=== PATIENT | male | born 1950 | race Caucasian/White ===

== ENCOUNTER 2016-11-10 11:29 | Day surgery (SDC) | payer BC, MEDICARE ==
[2016-11-10] MEDS ORDERED: fentaNYL* 50 MCG/ML 2 ML VIAL (100 MCG VIAL) IV SLOW PU ONE (12:36)
[2016-11-10] MEDS ORDERED: Ondansetron TAB* 4 MG PO ONE (12:36)
[2016-11-10] MEDS ORDERED: Ondansetron INJ* 2 MG/ML VIAL IV ONE (12:55)
[2016-11-10 13:09] LABS: Hematocrit 44 % (42-52); Hemoglobin 14.6 g/dl (14.0-18.0); Mean Corpuscular HGB Conc 33 g/dl (31-36); Mean Corpuscular Hemoglobin 31 pg (27-31); Mean Corpuscular Volume 94 fL (80-94); Mean Platelet Volume 9 um3 (7.4-10.4); Red Blood Count 4.69 10^6/ul (4.0-5.4); Red Cell Distribution Width 14 % (10.5-15); White Blood Count 9.3 10^3/ul (3.5-10.8)
[2016-11-10 13:26] LABS: ALT 112 U/L (7-52); AST 58 U/L (13-39); Albumin 3.9 g/dL (3.2-5.2); Alkaline Phosphatase 53 U/L (34-104); Anion Gap 8 mmol/L (2-11); BUN/Creatinine Ratio 12.1 (8-20); Blood Urea Nitrogen 11 mg/dL (6-24); C Reactive Protein 4.34 mg/L (< 5.00); CO2 Carbon Dioxide 26 mmol/L (22-32); Calcium 9.5 mg/dL (8.6-10.3); Chloride 101 mmol/L (101-111); EGFR African American 107.5 (>60); EGFR Non-African American 83.6 (>60); Globulin 3.6 g/dL (2-4); Glucose 134 mg/dL (70-100); Lipase < 10 U/L (11.0-82.0); Potassium 3.8 mmol/L (3.5-5.0); Sodium 135 mmol/L (133-145); Total Protein 7.5 g/dL (6.4-8.9)
[2016-11-10] MEDS ORDERED: Bupivacaine 0.5% W/EPI SDV* 10 ML VIAL INJ ONE (15:24)
[2016-11-10] MEDS ORDERED: Lidocaine 1% INJ* 10 MG/ML 30 ML SDV ONE (15:24)
[2016-11-10] MEDS ORDERED: Bupivacaine 0.25% EPI 200,000* 30 ML SDV ONE (15:24)
[2016-11-10] MEDS ORDERED: ceFAZolin 2 GM PREMIX(*) 2 GM/50 ML BAG IVPB ONE (15:26)
[2016-11-10] MEDS ORDERED: Sodium Citrate/Citric Acid* 15 ML UDC ONE (15:54)
--- NOTE | 2016-11-10 15:55 | HP ---
DATE OF ADMISSION: 11/10/2016. This patient was seen in the [facility] Emergency Room today, 2016. CHIEF COMPLAINT: Incarcerated belly button hernia. HISTORY OF PRESENT ILLNESS: The patient is a 66-year-old male who states that he has had a belly button hernia for the past two years and he has had to massage and push it back in every day. 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 This morning he was unable to reduce the hernia and stated that the bulge was the size of his fist and he also noticed some what he thought was intestinal movement suggesting peristalsis. This was associated with dry heaves, but he did not vomit. He states that over the past few months his bowel movements have decreased in diameter and have been very hard. He does move his bowels daily and his last bowel movement was this morning. He denies any blood or mucus in the stools. He denies any dysuria, fever, or chills. He drank black coffee this morning and did not eat. He has not had any previous abdominal surgery. He does have a history of diverticulitis. He does not have a primary care provider. In the emergency room today, Dr. Lopes gave the patient Fentanyl and placed him in Trendelenburg position and was able to reduce the hernia. Dr. Street evaluated the patient and after a lengthy discussion, advised the patient to proceed with open umbilical hernia repair of the incarcerated umbilical hernia with the use of mesh and the patient was interested in proceeding to surgery today as he was concerned about the recurrence of the incarceration. PAST MEDICAL HISTORY: Significant for hospitalization in the 1980s for diverticulitis and he states that he probably has an annual flare-up of the diverticulitis which he treats with "beer and potato chips." PAST SURGICAL HISTORY: Limited to wisdom teeth extraction, repair of an injury to his left knee after a chain saw accident and repair to one his hands after accidental injury on the job. MEDICATIONS: None currently. No vitamins or herbs. ALLERGIES: Many years ago after dental surgery, he took HYDROCODONE AND STATES THAT HE OVERUSED THEM AND BECAME VERY ITCHY AND CONFUSED. No other obvious allergies. FAMILY HISTORY: Mother with a history of cervical cancer, abdominal aortic aneurysm, deep vein thrombosis, and colitis. Father with a history of pancreatic cancer, myocardial infarction and polio. No known anesthesia complications in the family. No known bleeding tendencies. SOCIAL HISTORY: He is and his accompanies him today. He is retired from construction work. He quit smoking 40 years ago and did have a history of smoking [id number] packs per day for five years. He states that he drinks on average two beers a day and denies the use of other substances. REVIEW OF SYSTEMS: As previously mentioned, he does not have a primary care provider. He denies any chest pain, pressure, palpitations or shortness of breath. He denies any history of myocardial infarction. He denies any history of COPD, asthma, bronchitis, or pneumonia. He states with the repair of his knee after the chainsaw injury, he required a significant amount of anesthesia to go under. He has a history of diverticulitis as mentioned in the history of present illness. He denies any recent symptoms of a flare-up. He denies any recent urinary tract infections or history of kidney stones. He states that he has chronic back and joint pain related to long-term construction work. He denies any history of deep vein thrombosis or pulmonary embolism. He denies any bleeding tendencies and has never received a blood transfusion. PHYSICAL EXAMINATION GENERAL: The patient is a 66-year-old, obese male in no acute distress. Well- developed, well-nourished. VITAL SIGNS: Height 5'10", weight 220 pounds, body mass index 31.6. Blood pressure 148/75, pulse 66 and regular, respiratory rate 18, temperature 97.5 tympanic, O2 saturation 93 percent. HEENT: Benign. NECK: Supple. No cervical lymphadenopathy. BACK: No CVA tenderness. LUNGS: Breath sounds bilaterally clear and equal. HEART: Regular rate and rhythm. No murmurs appreciated. ABDOMEN: Obese, active bowel sounds. Obvious umbilical hernia that is now reduced, but is exquisitely tender on palpation with mild guarding. No other obvious masses or organomegaly, but exam is limited by body habitus. No skin fold rashes. EXTREMITIES: Warm, full range of motion. No skin ulcerations. No edema. GENITALIA: Exam deferred. RECTAL: Exam deferred. NEUROLOGIC: Alert and oriented times three. LABORATORY DATA: White blood cell count 9.3, platelet 207,000, electrolytes within normal limits, lactic acid normal at 1.5. EKG read as normal. IMPRESSION: Incarcerated umbilical hernia. PLAN: Per Dr. Street, operating room today for open repair of incarcerated umbilical hernia with mesh. Dr. Street described the nature of the surgical procedure, the relevant risks and benefits, and the typical same day hospitalization and postoperative care and recovery. All of the patient's questions were answered and he signed surgical consent. Time spent today was 75 minutes with greater than 50 percent in [id number] history taking and counseling of the patient and his family. REID US, HOME HEALTH ASSISTANT [id number]/[facility] #: [id number] JEFF
[2016-11-10] MEDS ORDERED: Propofol* 10 MG/ML 20 ML BTL IV PUSH ONE ×2 (15:56→16:28)
[2016-11-10] MEDS ORDERED: Succinylcholine* 20 MG/ML 10 ML VIAL ONE (15:56)
[2016-11-10] MEDS ORDERED: Lidocaine 2% PF * 5 ML VIAL ONE (15:56)
[2016-11-10] MEDS ORDERED: Midazolam* 1 MG/ML 2 ML VIAL (2 MG) ONE (15:56)
[2016-11-10] MEDS ORDERED: fentaNYL* 50 MCG/ML 2 ML VIAL (100 MCG VIAL) ONE (15:56)
[2016-11-10] MEDS ORDERED: Ketorolac INJ* 30 MG/ML 1 ML VIAL IV PRN (17:49)
[2016-11-10] MEDS ORDERED: fentaNYL* 50 MCG/ML 2 ML VIAL (100 MCG VIAL) IV PRN (17:49)
[2016-11-10] MEDS ORDERED: DiMENhydriNATE IV* 50 MG/ML VIAL IV PUSH PRN (17:49)
[2016-11-10] MEDS ORDERED: Ketorolac INJ* 30 MG/ML 1 ML VIAL ONE (18:54)
[2016-11-10 19:33] VITALS: BP 152/78
--- NOTE | 2016-11-11 09:03 | ED ---
Young Solano Alfonso, scribed for Emmett Lopes MD on 11/10/16 at 1242 . Abdominal Pain/Male - HPI Summary HPI Summary: This patient is a 66 year old M presenting [place] [facility] [place] by with a chief complaint of sharp umbilical abdominal pain since two days ago. He states I think my hernia popped. The pain has been worse since 0730 this morning. Pt rates the pain 7/10 in severity. Symptoms aggravated and alleviated by nothing. Pt reports nausea, and dry heaves. - History of Current Complaint Chief Complaint: EDAbdPain Stated Complaint: ABD PAIN, VOMITING Hx Obtained From: Patient Onset/Duration: Sudden Onset, Lasting Days - 2, Worse Since - 729 today Timing: Constant Severity Initially: Moderate Severity Currently: Moderate Pain Intensity: 7 Pain Scale Used: 0-10 Numeric Location: Umbilical Character: Sharp Aggravating Factor(s): Nothing Alleviating Factor(s): Nothing Associated Signs And Symptoms: Positive: Nausea, Other - Positive dry heaves - Allergies/Home Medications Allergies/Adverse Reactions: Allergies Allergy/AdvReac Type Severity Reaction Status Date / Time No Known Allergies Allergy Verified 11/10/16 11:44 PMH/Surg Hx/FS Hx/Imm Hx Sensory History: Denies: Hx Deafness Opthamlomology History: Denies: Hx Legally Blind Infectious Disease History: No Infectious Disease History: Denies: Traveled Outside the [place] in Last 30 Days - Family History Known Family History: Positive: Cardiac Disease, Other - Cancer - Social History Alcohol Use: Daily Alcohol Amount: 3 beers Substance Use Type: Reports: None Smoking Status (MU): Former Smoker Review of Systems Negative: Fever Positive: Abdominal Pain - umbilical sharp, Nausea, Other - Positive dry heaves All Other Systems Reviewed And Are Negative: Yes Physical Exam - Summary Physical Exam Summary: VITAL SIGNS: Reviewed. GENERAL: Patient is a well-developed and nourished male who is lying comfortable in the stretcher. ~Patient is not in any acute respiratory distress. HEAD AND FACE: Normocephalic and atraumatic. EYES: PERRLA, EOMI x 2, No injected conjunctiva. EARS: Hearing grossly intact. Ear canals and tympanic membranes are WNL. MOUTH: Oropharynx within normal limits. NECK: Supple, trachea is midline, no adenopathy, no JVD. CHEST: Symmetric, no tenderness at palpation LUNGS: Clear to auscultation bilaterally. No wheezing or crackles. CVS: RRR, S1 and S2 present, no murmurs or gallops appreciated. ABDOMEN: Umbilical hernia which is not reducible at this time. EXTREMITIES: FROM in all major joints, no edema, no cyanosis or clubbing. NEURO: Alert and oriented x 3. No acute neurological deficits. Speech is normal. SKIN: Dry and warm Triage Information Reviewed: Yes Vital Signs On Initial Exam: Initial Vitals Temp Pulse Resp BP Pulse Ox 98.2 F 52 24 158/67 96 11/10/16 11:31 11/10/16 11:31 11/10/16 11:31 11/10/16 11:31 11/10/16 11:31 Vital Signs Reviewed: Yes - [place] Coma Scale Coma Scale Total: 15 Diagnostics - Vital Signs Vital Signs Temp Pulse Resp BP Pulse Ox 11/10/16 11:41 97.5 F 63 22 159/76 97 11/10/16 11:31 98.2 F 52 24 158/67 96 - Laboratory Lab Results: Lab Results 11/10/16 11/10/16 11/10/16 Range/Units 13:00 13:00 13:00 WBC 9.3 (3.5-10.8) 10^3/ul RBC 4.69 (4.0-5.4) 10^6/ul Hgb 14.6 (14.0-18.0) g/dl Hct 44 (42-52) % MCV 94 (80-94) fL MCH 31 (27-31) pg MCHC 33 (31-36) g/dl RDW 14 (10.5-15) % Plt Count 207 (150-450) 10^3/ul MPV 9 (7.4-10.4) um3 Neut % (Auto) 80.9 (38-83) % Lymph % (Auto) 8.7 L (25-47) % Thayer % (Auto) 9.2 H (1-9) % Eos % (Auto) 0.5 (0-6) % Baso % (Auto) 0.7 (0-2) % Absolute Neuts (auto) 7.5 (1.5-7.7) 10^3/ul Absolute Lymphs (auto) 0.8 L (1.0-4.8) 10^3/ul Absolute Monos (auto) 0.9 H (0-0.8) 10^3/ul Absolute Eos (auto) 0 (0-0.6) 10^3/ul Absolute Basos (auto) 0.1 (0-0.2) 10^3/ul Absolute Nucleated RBC 0 10^3/ul Nucleated RBC % 0 Sodium 135 (133-145) mmol/L Potassium 3.8 (3.5-5.0) mmol/L Chloride 101 (101-111) mmol/L Carbon Dioxide 26 (22-32) mmol/L Anion Gap 8 (2-11) mmol/L BUN 11 (6-24) mg/dL Creatinine 0.91 (0.67-1.17) mg/dL Est GFR ( Amer) 107.5 (>60) Est GFR (Non-Af Amer) 83.6 (>60) BUN/Creatinine Ratio 12.1 (8-20) Glucose 134 H (70-100) mg/dL Lactic Acid 1.5 (0.5-2.0) mmol/L Calcium 9.5 (8.6-10.3) mg/dL Total Bilirubin 0.40 (0.2-1.0) mg/dL AST 58 H (13-39) U/L ALT 112 H (7-52) U/L Alkaline Phosphatase 53 (34-104) U/L C-Reactive Protein 4.34 (< 5.00) mg/L Total Protein 7.5 (6.4-8.9) g/dL Albumin 3.9 (3.2-5.2) g/dL Globulin 3.6 (2-4) g/dL Albumin/Globulin Ratio 1.1 (1-3) Lipase < 10 L (11.0-82.0) U/L Result Diagrams: 11/10/16 13:00 11/10/16 13:00 Lab Statement: Any lab studies that have been ordered have been reviewed, and results considered in the medical decision making process. - EKG 1256 Cardiac Rate: NL - BPM 72 EKG Rhythm: Sinus Rhythm EKG Interpretation: No ST elevation Abdominal Pain Fem Course/Dx - Course Course Of Treatment: This patient is a 66 year old M presenting to [facility] accompanied by with a chief complaint of sharp umbilical abdominal pain since two days ago. He states I think my hernia popped. The pain has been worse since 0730 this morning. Pt rates the pain 7/10 in severity. Symptoms aggravated and alleviated by nothing. Pt reports nausea, and dry heaves. Assessment/Plan: Test WNL except for glucose of 134 and increased LFT. In the ED course I was unable to reduce the hernia. However, I gave the patient Fentanyl and placed the patient in the Trendelenburg position. The I was able to reduce the hernia. I consulted with Dr. Street who came to see the patient in the ED. He admitted the patient for surgical repair of the umbilical hernia. Pt is hemodynamically stable and A&Ox3. - Diagnoses Provider Diagnoses: Umbilical hernia - Provider Notifications Discussed Care Of Patient With: Shane Street Time Discussed With Above Provider: 12:49 Instructed by Provider To: Other - Consulted Dr. Street ([facility]) who will see this patient in the ED. Discharge - Discharge Plan Condition: Good Disposition: HOME The documentation as recorded by the Young brown Alfonso accurately reflects the service I personally performed and the decisions made by me, Emmett Lopes MD.
--- NOTE | 2016-11-11 12:02 | OP ---
CC: Dr. Street OPERATIVE REPORT: DATE OF OPERATION: 11/10/16 DATE OF : 52 SURGEON: Shane Street MD SENIOR PRODUCT CONSULTANT: Olga Echeverria NP ANESTHESIOLOGIST: Dr. Goss. ANESTHESIA: General and local anesthesia. PRE-OP DIAGNOSIS: Incarcerated umbilical hernia. POST-OP DIAGNOSIS: Incarcerated umbilical hernia. OPERATIVE PROCEDURE: Open repair of incarcerated umbilical hernia with mesh. DESCRIPTION OF PROCEDURE: The patient was brought up from the emergency room and taken to the operating room and put under general anesthesia. Abdomen was clipped and prepped with antiseptic and draped in sterile fashion. Compression stockings and Michael Hugger warmer were in place. He has received intravenous antibiotics. At the time of initiating the surgery, the hernia is already reduced and soft, and a curvilinear incision was created at the inferior edge of the umbilical fold and dissection carried down the hernia to identify and dissected free from the umbilical skin. There were just omental contents at this point and the fascial edges were cleaned up and undermined. The preperitoneal plane has developed. A small hole in the sac was closed with 3-0 Vicryl. An 8 cm underlay patch was utilized and it was sutured up underneath in 8 places around the circumference to create a very nice underlay patch. The fascia was then closed over top with 0 Vicryl as well and the umbilical skin was tacked back down with 3-0 Vicryl, which was also used to close the adipose. The skin was closed with 5-0 Vicryl followed by Steri-Strips. A gauze dressing was placed and an abdominal binder was placed and he was brought to recovery room in good condition. There were no complications. No drains. No pathologic specimens. Sponge and instrument counts were correct. Estimated blood loss is less than 30 mL. [id number]/[facility] #: [id number] [facility]DREN'[facility] HOSPITALLouis
== END 2016-11-10 19:35 | disposition home or self-care (01) ==
LOC: ED 11:29 → OR 15:33
PROVIDERS: ATTEND Surgery
DX: K42.0 Umbilical hernia with obstruction, without gangrene (principal); Z87.891 Personal history of nicotine dependence; Z68.31 Body mass index [BMI] 31.0-31.9, adult
CPT/HCPCS: 36415; 80053; 83605; 83690; 85025; 86140; 93005; 96374; 96375; 99283; A9270-GY; C1781; J0330; J0690; J1885; J2001; J2250; J2405; J2704; J3010